=== PATIENT | female | born 1970 | race Caucasian/White ===

== ENCOUNTER 2016-12-28 14:11 | Emergency (ER) | payer BC ==
[2016-12-28 16:42] LABS: HEMOGLOBIN 13.7 gm/dl (12.3-15.3); RED BLOOD COUNT 4.48 M/UL (4.00-5.10); WHITE BLOOD COUNT 8.5 K/UL (4.5-11.0)
[2016-12-28 16:56] LABS: BUN/CREATININE RATIO 10 (0-10)
== END 2016-12-28 19:51 | disposition home or self-care (01) ==
LOC: ER1 14:11
PROVIDERS: Family Medicine
DX: K52.9 Noninfective gastroenteritis and colitis, unspecified (principal); K62.5 Hemorrhage of anus and rectum; Z88.2 Allergy status to sulfonamides; Z90.89 Acquired absence of other organs
CPT/HCPCS: 36415; 80053; 81001; 82272; 83690; 84703; 85025; 99283; J7050; Q9962